=== PATIENT | female | born 1970 | race Caucasian/White ===

== ENCOUNTER 2018-02-01 18:28 | Emergency (ER) | payer OTHER ==
[~2018-02-01] VITALS: Ht 165.1 cm; Wt 66.7 kg
[2018-02-01 18:30] VITALS: BP 128/84
[2018-02-01] MEDS ORDERED: HYDROcodone/APAP 5/325MG 1 TAB TABLET PO ONE (18:45)
[2018-02-01] MEDS ORDERED: NAPROXEN 500 MG TABLET PO STA (18:45)
--- NOTE | 2018-02-01 19:26 | PHYS DOC ---
Past Medical History Past Medical History: No Pertinent History Past Surgical History: No Surgical History Alcohol Use: None Drug Use: None Adult General Chief Complaint Chief Complaint: FOOT INJURY PAIN HPI HPI Patient is a 48 year old female who presents with 7 out of 10 sharp right lateral ankle pain that began today when she rolled her ankle and fell. Patient denies any loss of consciousness. Describes the pain as sharp and constant. States the pain is worse on ambulation. She states elevating the extremity relieves some of the pain. Review of Systems Review of Systems Constitutional: Denies fever or chills [] Musculoskeletal: Right ankle pain Integument: Denies rash or skin lesions [] Neurologic: Denies headache, focal weakness or sensory changes [] All other systems were reviewed and found to be within normal limits, except as documented in this note. Current Medications Current Medications Current Medications Medications (Trade) Dose Ordered Sig/[place] Start Time Stop Time Status Last Admin Dose Admin Acetaminophen/ Hydrocodone Bitart (Lortab 5/325) 2 tab 1X ONCE 02/01/18 18:45 02/01/18 18:54 DC 02/01/18 19:04 2 TAB Naproxen (Naprosyn) 500 mg 1X STAT 02/01/18 18:45 02/01/18 18:54 DC 02/01/18 19:03 500 MG Allergies Allergies Allergies Coded Allergies Type Severity Reaction Last Updated Verified oxycodone Allergy Unknown Rash 02/01/18 Yes Physical Exam Physical Exam Constitutional: Well developed, well nourished, no acute distress, non-toxic appearance. [] Skin: Warm, dry, no erythema, no rash. [] Back: No tenderness, no CVA tenderness. [] Extremities: Right lower extremity with no obvious deformity. Small amount of soft tissue swelling noted on the right lateral ankle. Tenderness on palpation of the right lateral ankle. Full range of motion to the right ankle and foot. + 2 right pedal pulse. Adequate sensation to the right lower extremity, cap refill less than 2 seconds the right toes Neurologic: Alert and oriented X 3, normal motor function, normal sensory function, no focal deficits noted. [] Psychologic: Affect normal, judgement normal, mood normal. [] Current Patient Data Vital Signs Vital Signs Date Time Temp Pulse Resp B/P (MAP) Pulse Ox O2 Delivery O2 Flow Rate FiO2 02/01/18 18:30 98.1 76 16 128/84 (99) 98 Room Air 98.1 EKG EKG [] Radiology/Procedures Radiology/Procedures [] Course & Med Decision Making Course & Med Decision Making Pertinent Labs and Imaging studies reviewed. (See chart for details) This is a 48-year-old female patient presented to the ED today with right ankle pain. Patient rolled her ankle this morning. Right ankle and right foot xrays interpreted by Dr. Novoa were negative for any acute findings. Air cast applied to the right ankle. Ice elevation encouraged. Diclofenac for pain. Follow-up with orthopedic doctor in one week. Karen Disclaimer Karen Disclaimer This electronic medical record was generated, in whole or in part, using a voice recognition dictation system. Departure Departure Impression: Primary Impression: Right ankle sprain Additional Impression: Fall Disposition: HOME, SELF-CARE Condition: STABLE Referrals: UNKNOWN PCP NAME (PCP) MARIZA JONES II, MD Follow-up with your own doctor the provided doctor in 1 week Patient Instructions: Ankle Sprain, Fall Prevention and Home Safety Additional Instructions: You were evaluated in the emergency room for right ankle sprain. Ice and elevate the extremity. Wear the provided Aircast as tolerated and needed. You can bear weight to the right lower extremity as tolerated. Follow-up with the orthopedic doctor provided or your own doctor in one week. Scripts Diclofenac Sodium (DICLOFENAC SODIUM) 50 Mg Tablet.dr 1 TAB PO BID, #28 TAB 0 Refills Prov: ALTAF ORTEGA APRN 02/01/18 Attending Co-Sign Attending Co-Sign The patient was not seen by me. The [facility] chart was reviewed. I agree with the plan of care. Problem Qualifiers Primary Impression: Right ankle sprain Encounter type: initial encounter Involved ligament of ankle: unspecified ligament Qualified Codes: S93.401A - Sprain of unspecified ligament of right ankle, initial encounter Additional Impression: Fall Encounter type: initial encounter Qualified Codes: W19.XXXA - Unspecified fall, initial encounter ALTAF ORTEGA APRN Feb 01, 2018 19:26 MARTINA NOVOA MD Feb 03, 2018 14:54
[2018-02-01] MEDS ORDERED: DICL50TA4 PO (19:37)
--- NOTE | 2018-02-01 19:40 | RAD ---
EXAM: 1. Right ankle 3 views. 2. Right foot 3 views. HISTORY: Right foot/ankle pain after twisting injury. COMPARISON: None. FINDINGS: No fractures are identified throughout the foot and ankle. There is a small benign intraosseous cyst at the base of the first proximal phalanx. Joint spaces and alignment are maintained. IMPRESSION: 1. No fracture. Electronically signed by: Mya Peña MD (02/01/2018 7:37 PM) [facility]
--- NOTE | 2018-02-01 19:40 | RAD ---
EXAM: 1. Right ankle 3 views. 2. Right foot 3 views. HISTORY: Right foot/ankle pain after twisting injury. COMPARISON: None. FINDINGS: No fractures are identified throughout the foot and ankle. There is a small benign intraosseous cyst at the base of the first proximal phalanx. Joint spaces and alignment are maintained. IMPRESSION: 1. No fracture. Electronically signed by: Mya Peña MD (02/01/2018 7:37 PM) [facility]
== END 2018-02-01 19:47 | disposition home or self-care (01) ==
LOC: ER 18:28
DX: S93.401A Sprain of unspecified ligament of right ankle, initial encounter (principal); Z88.5 Allergy status to narcotic agent; W18.39XA Other fall on same level, initial encounter; X50.9XXA Other and unspecified overexertion or strenuous movements or postures, initial encounter; Y93.89 Activity, other specified; Y92.89 Other specified places as the place of occurrence of the external cause; Y99.8 Other external cause status
CPT/HCPCS: 73610; 73630; 99284; L4350